=== PATIENT | female | born 1975 | race Caucasian/White ===

== ENCOUNTER 2018-11-25 12:26 | Emergency (ER) | payer OTHER ==
--- NOTE | 2018-11-25 13:03 | EDM.PDOC ---
ED HPI GENERAL MEDICAL PROBLEM - General Chief Complaint: Lower Extremity Injury/Pain Stated Complaint: INJURED KNEE Time Seen by Provider: 11/25/18 12:27 Source of Information: Reports: Patient History Limitations: Reports: No Limitations - History of Present Illness INITIAL COMMENTS - FREE TEXT/NARRATIVE: HISTORY AND PHYSICAL: History of present illness: Patient is a 43-year-old female who presents to the emergency room today with complaints of right knee pain. She states she was getting out of her truck when she felt her leg twist wrong and she felt some pain to her distal quadricep. Since that time she feels pain that starts to the anterior distal quadricep that goes to the anterior knee and down her lopez. She is ambulatory and able to bear weight without any difficulty but states that the pain is progressively becoming more unbearable. Review of systems: As per history of present illness and below otherwise all systems reviewed and negative. Past medical history: As per history of present illness and as reviewed below otherwise noncontributory. Surgical history: As per history of present illness and as reviewed below otherwise noncontributory. Social history: See social history for further information Family history: As per history of present illness and as reviewed below otherwise noncontributory. Physical exam: General: Well-developed and well-nourished 43-year-old female. Alert and oriented. Nontoxic appearing and in no acute distress. HEENT: Atraumatic, normocephalic, pupils equal and reactive bilaterally, negative for conjunctival pallor or scleral icterus, mucous membranes moist, TMs normal bilaterally, throat clear, neck supple, nontender, trachea midline. No drooling or trismus noted. No meningeal signs. No hot potato voice noted. Lungs: Clear to auscultation, breath sounds equal bilaterally, chest nontender. Heart: S1S2, regular rate and rhythm without overt murmur Abdomen: Soft, nondistended, nontender. Negative for masses or hepatosplenomegaly. Negative for costovertebral tenderness. Pelvis: Stable nontender. Genitourinary: Deferred. Rectal: Deferred. Skin: Intact, warm, dry. No lesions or rashes noted. Extremities: Atraumatic, negative for cords or calf pain. Neurovascular unremarkable. Neuro: Awake, alert, oriented. Cranial nerves II through XII unremarkable. Cerebellum unremarkable. Motor and sensory unremarkable throughout. Exam nonfocal. Notes: Patient is aware of the limitations that an x-ray will provide. Upon physical examination she does have some muscular spasms noted with extension and flexion of the quadricep muscle. She is agreeable to obtaining an x-ray but likely will need further evaluation through the orthopedic provider with possible MRI. X-ray shows no acute fracture. We'll provide crutches. She declines wanting anything narcotic for pain management therefore will treat the muscular spasm. I encouraged her to follow closely with the orthopedic provider. She voices understanding and is agreeable to plan of care. Denies any further questions or concerns at this time. Diagnostics: X-ray right knee Therapeutics: None Prescription: Flexeril and Diclofenac Impression: Suspected Muscle Strain Right knee injury Plan: 1. Rest, ice, elevate the extremity as able. Please use crutches as directed. 2. Tylenol and/or ibuprofen as needed for pain management. 3. Please follow-up with the orthopedic provider and/or your primary care provider in the next 1-2 days. Return to the ED as needed and as discussed Definitive disposition and diagnosis as appropriate pending reevaluation and review of above. Right Knee Pain Score (Numeric/FACES): 7 - Related Data Allergies Allergy/AdvReac Type Severity Reaction Status Date / Time No Known Allergies Allergy Verified 11/25/18 12:51 Home Meds: Home Meds Cyclobenzaprine [Flexeril] 10 mg PO TID PRN #21 tab 11/25/18 [Rx] Diclofenac Sodium [Voltaren] 50 mg PO TID PRN #30 tab.ec 11/25/18 [Rx] Past Medical History - Past Health History Medical/Surgical History: Denies Medical/Surgical History [employer] History: Reports: - Past Surgical History Female Surgical History: Reports: Section Musculoskeletal Surgical History: Reports: Other (See Below) Other Musculoskeletal Surgeries/Procedures:: right foot pain Social & Family History - Family History Family Medical History: Noncontributory - Tobacco Use Smoking Status *Q: Current Every Day Smoker Years of Tobacco use: 13 Packs/Tins Daily: 1 - Caffeine Use Caffeine Use: Reports: None - Recreational Drug Use Recreational Drug Use: No Review of Systems - Review of Systems Review Of Systems: ROS reveals no pertinent complaints other than HPI. ED EXAM, GENERAL - Physical Exam Exam: See Below (See dictation) Course - Vital Signs Last Recorded V/S: Last Vital Signs Temp 97.7 F 11/25/18 12:45 Pulse 109 H 11/25/18 12:45 Resp 18 11/25/18 12:45 BP 149/103 H 11/25/18 12:45 Pulse Ox 95 11/25/18 12:45 - Orders/Labs/Meds Orders: Active Orders 24 hr Category Date Time Status DME for Discharge [COMM] Stat Oth 11/25/18 12:58 Ordered Departure - Departure Time of Disposition: 14:05 Disposition: Home, Self-Care 01 Clinical Impression: Strain of quadriceps muscle Qualifiers: Encounter type: initial encounter Laterality: right Qualified Code(s): S76.111A - Strain of right quadriceps muscle, fascia and tendon, initial encounter Right knee injury Qualifiers: Encounter type: initial encounter Qualified Code(s): S89.91XA - Unspecified injury of right lower leg, initial encounter - Discharge Information Prescriptions: Cyclobenzaprine [Flexeril] 10 mg PO TID PRN #21 tab PRN Reason: Pain Diclofenac Sodium [Voltaren] 50 mg PO TID PRN #30 tab.ec PRN Reason: Pain Referrals: PCP,Unknown [Primary Care Provider] - Forms: ED Department Discharge Additional Instructions: The following information is given to patients seen in the emergency department who are being discharged to home. This information is to outline your options for follow-up care. We provide all patients seen in our emergency department with a follow-up referral. The need for follow-up, as well as the timing and circumstances, are variable depending upon the specifics of your emergency department visit. If you don't have a primary care physician on staff, we will provide you with a referral. We always advise you to contact your personal physician following an emergency department visit to inform them of the circumstance of the visit and for follow-up with them and/or the need for any referrals to a consulting specialist. The emergency department will also refer you to a specialist when appropriate. This referral assures that you have the opportunity for follow-up care with a specialist. All of these measure are taken in an effort to provide you with optimal care, which includes your follow-up. Under all circumstances we always encourage you to contact your private physician who remains a resource for coordinating your care. When calling for follow-up care, please make the office aware that this follow-up is from your recent emergency room visit. If for any reason you are refused follow-up, please contact the [facility] Emergency Department at and asked to speak to the emergency department charge nurse. [facility] [address] [place] [address] [address] [facility] - [facility] Professional [facility] [address] [place] [address], [address] [place] [address] 1. Rest, ice, elevate the extremity as able. Please use crutches as directed. 2. Tylenol as needed for pain management. Take the prescriptions as directed. 3. Please follow-up with the orthopedic provider and/or your primary care provider in the next 1-2 days. Return to the ED as needed and as discussed - My Orders Last 24 Hours: My Active Orders 11/25/18 12:58 DME for Discharge [COMM] Stat - Assessment/Plan Last 24 Hours: My Active Orders 11/25/18 12:58 DME for Discharge [COMM] Stat
--- NOTE | 2018-11-25 14:01 | CR ---
Indication: Pain for few weeks. No injury. Technique: Three views of the right knee were obtained. Comparison: None Findings: Narrowing at the patellofemoral articulation is identified. Joint effusion is identified. Narrowing of the medial compartment is seen. A fabella is present. Impression: Degenerative change. Joint effusion. No acute fracture. Dictated by Shauna Jones MD @ Nov 25 2018 1:58PM Signed by Dr. Shauna Jones @ Nov 25 2018 1:59PM
== END 2018-11-25 14:17 | disposition home or self-care (01) ==
LOC: MW.ED 12:26
DX: S76.111A Strain of right quadriceps muscle, fascia and tendon, initial encounter (principal); S89.91XA Unspecified injury of right lower leg, initial encounter; F17.210 Nicotine dependence, cigarettes, uncomplicated; X50.1XXA Overexertion from prolonged static or awkward postures, initial encounter
CPT/HCPCS: 73562-26-RT; 73562-RT; 99283